=== PATIENT | male | born 1975 | race Caucasian/White ===

== ENCOUNTER 2017-01-23 06:24 | Day surgery (SDC) | payer OTHER ==
[~2017-01-23] VITALS: Ht 177.8 cm; Wt 117.9 kg
[2017-01-23 06:53] VITALS: BP 142/90
[2017-01-23 09:29] VITALS: BP 130/78
== END 2017-01-23 10:15 | disposition home or self-care (01) ==
LOC: DS 06:24 → GI 08:30 → DS 10:15 → GI 13:30
PROVIDERS: Internal Medicine
PROC: 0DB28ZX Excision of Middle Esophagus, Via Natural or Artificial Opening Endoscopic, Diagnostic (ICD-10-PCS; 2017-01-23)
PROC: 0DB38ZX Excision of Lower Esophagus, Via Natural or Artificial Opening Endoscopic, Diagnostic (ICD-10-PCS; 2017-01-23)
PROC: 0DB48ZX Excision of Esophagogastric Junction, Via Natural or Artificial Opening Endoscopic, Diagnostic (ICD-10-PCS; 2017-01-23)
PROC: 0DB68ZX Excision of Stomach, Via Natural or Artificial Opening Endoscopic, Diagnostic (ICD-10-PCS; principal; 2017-01-23 08:30)
DX: J35.1 Hypertrophy of tonsils (principal); K20.8 Other esophagitis; K21.9 Gastro-esophageal reflux disease without esophagitis; K29.70 Gastritis, unspecified, without bleeding
CPT/HCPCS: 43235; J1200; J1610; J2250; J2310; J3010; J3490

== ENCOUNTER 2017-04-24 07:05 | Day surgery (SDC) | payer OTHER ==
[~2017-04-24] VITALS: Ht 177.8 cm; Wt 117.5 kg
[2017-04-24 07:59] VITALS: BP 130/75
[2017-04-24 11:15] VITALS: BP 121/76
== END 2017-04-24 11:05 | disposition home or self-care (01) ==
LOC: DS 07:05 → OR 07:30 → GI 07:30 → DS 11:05
PROVIDERS: Internal Medicine
PROC: 0DJD8ZZ Inspection of Lower Intestinal Tract, Via Natural or Artificial Opening Endoscopic (ICD-10-PCS; principal; 2017-04-24 07:45)
DX: K57.31 Diverticulosis of large intestine without perforation or abscess with bleeding (principal); K59.00 Constipation, unspecified; K21.9 Gastro-esophageal reflux disease without esophagitis; I10 Essential (primary) hypertension; J45.909 Unspecified asthma, uncomplicated; E66.9 Obesity, unspecified; Z68.38 Body mass index [BMI] 38.0-38.9, adult
CPT/HCPCS: 45378; J1200; J1610; J2250; J2310; J3010; J3490